=== PATIENT | male | born 1985 | race Caucasian/White ===

== ENCOUNTER 2017-01-12 20:22 | Emergency (ER) | payer BC, MEDICAID ==
[2017-01-12 22:01] VITALS: BP 131/79
[2017-01-12] MEDS ORDERED: HYDROmorphone 1 MG/ML Syringe IM ONE (22:46)
--- NOTE | 2017-01-12 23:09 | EDM.PDOC ---
ED HPI Trauma - General Chief Complaint: Upper Extremity Injury/Pain Stated Complaint: RT HAND INJURY Time Seen by Provider: 01/12/17 22:19 Source: Reports: Patient History Limitations: Reports: No limitations - History of Present Illness INITIAL COMMENTS - FREE TEXT/NARRATIVE: History of present illness: [31-year-old presents with a history of trying to punch out his car window when he left his keys inside comes in with pain involving his lateral hand. No other injuries] Review of systems: As per history of present illness and below otherwise all systems reviewed and negative. Past medical history: As per history of present illness and as reviewed below otherwise noncontributory. Surgical history: As per history of present illness and as reviewed below otherwise noncontributory. Social history: No reported history of drug or alcohol abuse. Family history: As per history of present illness and as reviewed below otherwise noncontributory. Physical exam: HEENT: Atraumatic, normocephalic, Lungs: Clear to auscultation, breath sounds equal bilaterally, Heart: S1S2, regular, Abdomen: Soft, nondistended, nontender. Negative for masses or hepatosplenomegaly. Negative for costovertebral tenderness. Extremities: Pain and swelling at the fifth metacarpal distally is noted Neuro: Awake, alert, oriented. Exam nonfocal. Diagnostics: [X-ray show boxers fracture of the fifth metacarpal of the right hand] Therapeutics: [I am going was given for pain] Impression: [Boxers fracture of the fifth metacarpal right hand] Plan: [He was splinted and will followup in the orthopedic clinic tomorrow this is a short arm splint cutter-type] Definitive disposition and diagnosis as appropriate pending reevaluation and review of above. Allergies/ADRs: Allergies No Known Allergies Allergy (Verified 01/12/17 21:54) Home Medications: Ambulatory Orders NK [No Known Home Meds] 01/12/17 [Confirmed 01/12/17] Past Medical History - Past Health History Medical/Surgical History: Denies Medical/Surgical History Social & Family History - Tobacco Use Smoking Status *Q: Current Every Day Smoker Years of Tobacco use: 5 Packs/Tins Daily: 0.5 Review of Systems - Review of Systems Review Of Systems: ROS reveals no pertinent complaints other than HPI. Trauma Exam - Physical Exam Exam: See Below Course - Vital Signs Last Recorded V/S: Last Vital Signs Temp 36.7 C 01/12/17 21:59 Pulse 90 01/12/17 21:59 Resp 14 01/12/17 21:59 BP 131/79 01/12/17 21:59 Pulse Ox 98 01/12/17 21:59 - Orders/Labs/Meds Orders: Active Orders 24 hr Category Date Time Status Hand Comp Min 3V Rt [CR] Stat Exams 01/12/17 22:01 Taken Meds: Medications Discontinued Medications Generic Name Dose Route Start Last Admin Trade Name Inder PRN Reason Stop Dose Admin Hydromorphone HCl 1 mg 01/12/17 22:46 01/12/17 22:49 Dilaudid IM 01/12/17 22:47 1 mg ONETIME ONE Administration Departure - Departure Time of Disposition: 23:08 Disposition: Home, Self-Care 01 Condition: good Clinical Impression: Boxers fracture Qualifiers: Encounter type: initial encounter Fracture type: closed Qualified Code(s): S62.309A - Unspecified fracture of unspecified metacarpal bone, initial encounter for closed fracture Forms: ED Department Discharge Additional Instructions: Someone from the orthopedic clinic should call you tomorrow and arrangements for you to be seen there definitive care. - My Orders Last 24 Hours: My Active Orders 01/12/17 22:01 Hand Comp Min 3V Rt [CR] Stat - Assessment/Plan Last 24 Hours: My Active Orders 01/12/17 22:01 Hand Comp Min 3V Rt [CR] Stat
--- NOTE | 2017-01-13 09:37 | CR ---
Hand Comp Min 3V Rt HISTORY: , Trauma COMPARISON: Right hand film 2007 FINDINGS: Oblique fracture of the right fifth metacarpal at the margin of the head and neck of the m etacarpal with mild angulation and displacement.
== END 2017-01-12 23:18 | disposition home or self-care (01) ==
LOC: JP.ED 20:22
DX: S62.309A Unspecified fracture of unspecified metacarpal bone, initial encounter for closed fracture (principal); F17.210 Nicotine dependence, cigarettes, uncomplicated; W22.8XXA Striking against or struck by other objects, initial encounter
CPT/HCPCS: 29125; 73130; 96372; 99284; J1170

== ENCOUNTER 2018-02-02 22:17 | Emergency (ER) | payer SELFPAY ==
[2018-02-02 22:32] VITALS: BP 137/89
[2018-02-02] MEDS ORDERED: Proparacaine 0.5% Ophth Soln 15 ML Bottle EYERT ONE (22:43)
--- NOTE | 2018-02-02 23:14 | EDM.PDOC ---
ED HPI GENERAL MEDICAL PROBLEM - General Chief Complaint: Eye Problems Stated Complaint: SOMETHING IN EYE Time Seen by Provider: 02/02/18 22:50 Source of Information: Reports: Patient History Limitations: Reports: No Limitations - History of Present Illness INITIAL COMMENTS - FREE TEXT/NARRATIVE: 32 year old male working on a muffler earlier today and was grinding, etc and sustained foreign bodies in the eyes. He washed everything out he "thought", but his right eye is bothering him tonight. Onset: Today Quality: Reports: Ache Worsens with: Reports: Other (eye movement) Associated Symptoms: Reports: No Other Symptoms Right Eye Pain Score (Numeric/FACES): 5 - Related Data Allergies Allergy/AdvReac Type Severity Reaction Status Date / Time No Known Allergies Allergy Verified 01/12/17 21:54 Home Meds: Home Meds NK [No Known Home Meds] 01/12/17 [History] Past Medical History - Past Health History Medical/Surgical History: Denies Medical/Surgical History Social & Family History - Tobacco Use Smoking Status *Q: Current Every Day Smoker Years of Tobacco use: 5 Packs/Tins Daily: 0.5 - Caffeine Use Caffeine Use: Reports: Coffee, Soda, Tea - Recreational Drug Use Recreational Drug Use: No ED ROS GENERAL - Review of Systems Review Of Systems: See Below Constitutional: Denies: Fever HEENT: Denies: Contact Lenses Respiratory: Denies: Shortness of Breath Cardiovascular: Denies: Chest Pain GI/Abdominal: Denies: Abdominal Pain, Nausea, Vomiting Skin: Reports: No Symptoms ED EXAM GENERAL W FULL EYE - Physical Exam Exam: See Below Exam Limited By: No Limitations General Appearance: Alert, No Apparent Distress (looks uncomfortable but not distressed) Eye Exam: Right Eye: Foreign Body (Several small black objects) Visual Acuity (R) 20/: 40 Eyelids: Bilateral: Normal Appearance Conjunctiva & Sclera: Right: Conjunctival Edema Cornea Exam: Right: Foreign Body, Left: Normal Appearance Extraocular Movements: Bilateral: Intact Comments: Slit lamp eval revealed 3 distinct black foreign bodies of the right eye. The two larger pieces were along the edge of the cornea laterally the 3rd at 11:00 just above the pupil Course - Vital Signs Last Recorded V/S: Last Vital Signs Temp 98.1 F 02/02/18 22:34 Pulse 118 H 02/02/18 22:34 Resp 16 02/02/18 22:34 BP 137/89 02/02/18 22:34 Pulse Ox 97 02/02/18 22:34 - Orders/Labs/Meds Meds: Medications Discontinued Medications Generic Name Dose Route Start Last Admin Trade Name Inder PRN Reason Stop Dose Admin Proparacaine HCl 1 ml 02/02/18 22:43 02/02/18 22:48 Proparacaine 0.5% Ophth Soln EYERT 02/02/18 22:44 2 drop ONETIME ONE Administration - Re-Assessments/Exams Free Text/Narrative Re-Assessment/Exam: 02/03/18 06:52 After proparacaine and flourescein stain, the two larger bodies were removed with a sterile wet cotton tip.The third needed more manipulation and when I told him I used a needle he fainted. He will follow up with Dr. Augustine Departure - Departure Time of Disposition: 23:15 Disposition: Home, Self-Care 01 Condition: Good Clinical Impression: Corneal FB (foreign body) Qualifiers: Encounter type: initial encounter Laterality: right Qualified Code(s): T15.01XA - Foreign body in cornea, right eye, initial encounter - Discharge Information Instructions: Eye Foreign Body, [id number] Referrals: Jose Daniel Thurston Sr, MD [Primary Care Provider] - Forms: ED Department Discharge Care Plan Goals: Call [facility] tomorrow morning to be seen by Dr. Tavo Mcclure. If you call early around 9:00 they will tell you when to come in.
== END 2018-02-02 23:16 | disposition home or self-care (01) ==
LOC: JP.ED 22:17
DX: T15.01XA Foreign body in cornea, right eye, initial encounter (principal); F17.210 Nicotine dependence, cigarettes, uncomplicated; X58.XXXA Exposure to other specified factors, initial encounter
CPT/HCPCS: 65222; 99283; A9270

== ENCOUNTER 2020-07-07 15:48 | Emergency (ER) | payer MEDICAID ==
[2020-07-07 16:19] VITALS: BP 125/85; PULSE 94
--- NOTE | 2020-07-07 17:06 | EDM.PDOC ---
ED HPI GENERAL MEDICAL PROBLEM - General Chief Complaint: Laceration Stated Complaint: FELL HIT LT SIDE OF HEAD Time Seen by Provider: 07/07/20 16:50 Source of Information: Reports: Patient, RN Notes Reviewed History Limitations: Reports: No Limitations - History of Present Illness INITIAL COMMENTS - FREE TEXT/NARRATIVE: Jose presents today for complaints of wound to left religion area. He states he was working on a car and banged his head on the corral yesterday or the day before. He denies any LOC, other injury or trauma, fever, chills, nausea, vomiting or other concerns. Tetanus up to date. - Related Data Allergies Allergy/AdvReac Type Severity Reaction Status Date / Time No Known Allergies Allergy Verified 07/07/20 16:20 Home Meds: Home Meds NK [No Known Home Meds] 01/12/17 [History] Past Medical History - Past Health History Medical/Surgical History: Denies Medical/Surgical History - Past Surgical History Head Surgeries/Procedures: Reports: None Dermatological Surgical History: Reports: None Social & Family History - Tobacco Use Smoking Status *Q: Current Every Day Smoker Years of Tobacco use: 10 Packs/Tins Daily: 0.5 Used Tobacco, but Quit: No Second Hand Smoke Exposure: No - Caffeine Use Caffeine Use: Reports: Coffee, Soda, Tea - Recreational Drug Use Recreational Drug Use: No ED ROS GENERAL - Review of Systems Review Of Systems: See Below Constitutional: Reports: No Symptoms HEENT: Reports: Other (abrasion to left religion, bleeding controlled. ) Respiratory: Reports: No Symptoms Cardiovascular: Reports: No Symptoms Endocrine: Reports: No Symptoms GI/Abdominal: Reports: No Symptoms Musculoskeletal: Reports: No Symptoms Skin: Reports: Other (abrasion left religion) Neurological: Reports: No Symptoms Psychiatric: Reports: No Symptoms Hematologic/Lymphatic: Reports: No Symptoms Immunologic: Reports: No Symptoms ED EXAM, SKIN/RASH Exam: See Below Exam Limited By: No Limitations General Appearance: Alert, WD/WN, No Apparent Distress Eye Exam: Bilateral Eye: EOMI, Normal Inspection Ears: Normal External Exam, Normal Canal, Hearing Grossly Normal, Normal TMs Nose: Normal Inspection, Normal Mucosa Throat/Mouth: Normal Inspection, Normal Lips, Normal Teeth, Normal Gums, Normal Oropharynx, Normal Voice, No Airway Compromise Head: Normocephalic. No: Facial Swelling, Facial Tenderness, Sinus Tenderness Neck: Normal Inspection, Supple, Non-Tender, Full Range of Motion. No: Lymphadenopathy (R), Lymphadenopathy (L) Respiratory/Chest: No Respiratory Distress, Lungs Clear, Normal Breath Sounds, No Accessory Muscle Use, Chest Non-Tender. No: Rales, Rhonchi, Wheezing Cardiovascular: Normal Peripheral Pulses, Regular Rate, Rhythm, No Edema, No Gallop, No Murmur, No Rub Back Exam: Normal Inspection, Full Range of Motion. No: CVA Tenderness (R), CVA Tenderness (L) Extremities: Normal Inspection, Normal Range of Motion, Non-Tender, No Pedal Edema, Normal Capillary Refill Neurological: Alert, Oriented, CN II-XII Intact, Normal Cognition, Normal Gait, Normal Reflexes, No Motor/Sensory Deficits Psychiatric: Normal Affect, Normal Mood Skin: Warm, Normal Color, No Rash, Other (abrasion to left religion, no signs of infection.) Location, Skin: Face Characteristics: Other (avulsion/abrasion left religion) Associated features: Tenderness. No: Warmth, Swelling, Inflammation, Crusting, Weeping Lymphatic: No Adenopathy Course - Vital Signs Last Recorded V/S: Last Vital Signs Temp 36.7 C 07/07/20 16:23 Pulse 94 07/07/20 16:23 Resp 17 07/07/20 16:23 BP 125/85 07/07/20 16:23 Pulse Ox 95 07/07/20 16:23 Departure - Departure Time of Disposition: 17:05 Disposition: DC/Tfer to Care Home [facility] 64 Clinical Impression: Abrasion - Discharge Information *PRESCRIPTION DRUG MONITORING PROGRAM REVIEWED*: Not Applicable *COPY OF PRESCRIPTION DRUG MONITORING REPORT IN PATIENT ITZEL: Not Applicable Instructions: Abrasion, [id number] Referrals: PCP,None [Primary Care Provider] - Forms: ED Department Discharge Additional Instructions: Keep abrasion clean and dry. Wash and shower as usual, pat dry. Put a thin layer of bacitracin ointment to the abrasion twice per day until healed. Cover with a bandaid when it could get dirty until healed. Return for any worsening, issues or concerns. Sepsis Event Note (ED) - Evaluation Sepsis Screening Result: No Definite Risk - Focused Exam Vital Signs: Vital Signs Temp Pulse Resp BP Pulse Ox 07/07/20 16:23 36.7 C 94 17 125/85 95 07/07/20 16:18 36.7 C 94 17 125/85 95 - Assessment/Plan Assessment:: Abrasion Plan: Keep abrasion clean and dry. Wash and shower as usual, pat dry. Put a thin layer of bacitracin ointment to the abrasion twice per day until healed. Cover with a bandaid when it could get dirty until healed. Return for any worsening, issues or concerns.
== END 2020-07-07 17:30 ==
LOC: JP.ED 15:48
DX: S00.81XA Abrasion of other part of head, initial encounter (principal); F17.210 Nicotine dependence, cigarettes, uncomplicated; W22.8XXA Striking against or struck by other objects, initial encounter
CPT/HCPCS: 99284

== ENCOUNTER 2022-05-06 14:24 | Emergency (ER) | payer MEDICAID ==
[2022-05-06 14:50] VITALS: BP 114/76; PULSE 78
[2022-05-06] MEDS ORDERED: Ketorolac 30 MG/ML SDV IM ONE (15:37)
== END 2022-05-06 16:46 | disposition home or self-care (01) ==
LOC: JP.ED 14:24
DX: T40.1X1A Poisoning by heroin, accidental (unintentional), initial encounter (principal); F17.210 Nicotine dependence, cigarettes, uncomplicated
CPT/HCPCS: 71046; 93005; 93010; 96372; 99282; 99284; J1885

== ENCOUNTER 2023-04-03 18:23 | Emergency (ER) | payer MEDICAID ==
[2023-04-03 18:39] VITALS: BP 123/74; PULSE 77
== END 2023-04-03 20:57 | disposition other institution (70) ==
LOC: JP.ED 18:23
DX: F32.A Depression, unspecified (principal); F41.9 Anxiety disorder, unspecified; Z72.0 Tobacco use
CPT/HCPCS: 99284

== ENCOUNTER 2023-04-11 08:55 | Emergency (ER) | payer MEDICAID ==
[2023-04-11 09:07] VITALS: BP 119/81; PULSE 60
== END 2023-04-11 13:52 ==
LOC: JP.ED 08:55
DX: Z04.6 Encounter for general psychiatric examination, requested by authority (principal); F17.210 Nicotine dependence, cigarettes, uncomplicated
CPT/HCPCS: 99283

== ENCOUNTER 2025-04-29 07:55 | Day surgery (SDC) | payer BC ==
[2025-04-29] MEDS ORDERED: Midazolam 1 MG/ML 2 ML SDV ONE (08:50)
[2025-04-29] MEDS ORDERED: Propofol 200 MG/20 ML SDV ONE ×2 (08:50→09:33)
[2025-04-29] MEDS ORDERED: fentaNYL 100 MCG/2 ML SDV ONE (08:50)
[2025-04-29] MEDS: Lactated Ringers 1,000 ML IV SCH (08:54)
[2025-04-29 11:28] VITALS: BP 122/83; PULSE 55
== END 2025-04-29 11:20 | disposition home or self-care (01) ==
LOC: JP.SDS 07:55
PROVIDERS: ATTEND Internal Medicine
DX: K59.00 Constipation, unspecified (principal); F17.200 Nicotine dependence, unspecified, uncomplicated; Z88.1 Allergy status to other antibiotic agents
CPT/HCPCS: 45330; J2250; J2704; J3010; J7120; 00811-QZ